=== PATIENT | male | born 1985 | race Caucasian/White ===

== ENCOUNTER 2016-11-07 14:34 | Emergency (ER) | payer OTHER ==
[~2016-11-07] VITALS: Ht 167.6 cm; Wt 127.3 kg
[~2016-11-07 14:34] MED LIST: METH5TAB3 PO; MULT-1039 PO; OMEP-113 PO; OXYC20OR15 PO; SOM350 PO; VIS25 PO; VITE PO; ZAN150T PO
[2016-11-07] MEDS ORDERED: Ondansetron 2 mg/mL 2 mL Inj IVPUSH PRN (15:00)
[2016-11-07] MEDS ORDERED: 0.9% Sodium Chloride 1,000 ML IV ONE (15:00)
[2016-11-07] MEDS ORDERED: HYDROmorphone 1 mg/mL Inj IVPUSH PRN (15:00)
[2016-11-07 15:10] VITALS: BP 133/87; PULSE 104; RESP 15; O2SAT 96
[2016-11-07] MEDS ORDERED: OMEP40CA36 PO (15:17)
[2016-11-07] MEDS ORDERED: HYDR2TAB28 PO (15:17)
[2016-11-07] MEDS ORDERED: PROM25TA14 PO (15:17)
[2016-11-07] MEDS ORDERED: DIAZ2TAB PO (15:17)
[2016-11-07] MEDS ORDERED: BUPR150T8 PO (15:17)
--- NOTE | 2016-11-07 15:36 | ED.REPORT ---
HPI-Abd Pain M Under 40 Date of Service Nov 07, 2016 ED Provider: Fabian Knight MD This is a 31 year old male with a history of congenital arthrogryposis and peripheral neuropathy presenting to the emergency department complaining of lower abdominal pain that began 4 hours ago. Described as cramping and burning. Associated symptoms include diarrhea, reports 4 episodes since onset. Denies vomiting, nausea, fever, chills, cough, shortness of breath, or chest pain. Pt recently completed Augmentin for ulcerations to bilateral lower extremities. States he does not want lab draw as he is very difficult to get blood from. No blood in stool. Nursing Notes Chief Complaint: Male Abdominal Pain Nursing Notes Reviewed: Yes Allergies: Coded Allergies: acetaminophen (Verified Allergy, Intermediate, hives/itching, 04/11/16) hydrocodone (Verified Allergy, Intermediate, hives/itching, 05/02/16) ibuprofen (Verified Adverse Reaction, Intermediate, nausea/vomiting, ) ketorolac (Verified Adverse Reaction, Intermediate, hurts to pee, 05/02/16) tramadol (Verified Adverse Reaction, Intermediate, hurts to pee, 05/02/16) Scheduled Bupropion ER (Wellbutrin SR) 150 Mg Tablet.er 150 MG PO BID Metronidazole (Metronidazole) 500 Mg Tablet 500 MG PO TID Omeprazole (Omeprazole) 40 Mg Capsule.dr 40 MG PO BID Scheduled PRN Diazepam (Valium) 2 Mg Tablet 2 MG PO BID PRN PRN For Anxiety Hydromorphone (Hydromorphone) 2 Mg Tablet 2 MG PO BID PRN PRN Pain Promethazine (Promethazine) 25 Mg Tablet 25 MG PO BID PRN PRN For Nausea General Time Seen by MD: 15:00 Chief Complaint Abdominal pain Hx Obtained From: Patient Arrived By: Walk-in Sudden in Onset?: Yes Onset Occurred: 13 - 16 hours ago Symptom Duration: Since onset Location: : Diffuse Severity: Current: Moderate Pertinent Negative: Pt denies other symptoms Recent Healthcare: No recent doctor visit, No recent hospitalization Similar Sx Previous: No Past Medical History Past Medical History arthrogryposis peripheral neuropathy Past Surgical History Achilles tendon release as a child due to congenital abnormality of the lower extremities secondary to arthrogryposis. Smoking History Current Every Day Smoker, Former Smoker Social History Alcohol Use: "Social" Drug Use: Denies drug use Ambulatory Status Wheelchair Review of Systems Constitutional: Denies: Chills, Fever Respiratory: Denies: Non-productive cough, Shortness of breath Cardiovascular: Denies: Chest pain GI: Reports: Abdominal pain, Diarrhea, Denies: Constipation, Nausea, Vomiting Male: Denies Dysuria Complete sys rev & neg: except as marked. Neurologic: Denies: Headache Physical Exam Initial Vital Signs Vital Signs (First) Date Time Temp Pulse Resp B/P Pulse Ox O2 Delivery O2 Flow Rate FiO2 11/07/16 15:10 104 15 133/87 96 Room Air Initial VS: Reviewed Head / Eyes: Atraumatic, Normocephalic, PERRL ENT: Mucous membranes moist, Conjunctiva normal, No scleral icterus Neck: Supple, Non-tender, Full range of motion Skin: Warm, Dry, No cyanosis Neurologic: Alert, Oriented, Nonfocal Psychiatric: Mood/affect normal, Behavior normal, Normal thought content General/Constitutional: Awake, Alert Respiratory / Chest: Breath sounds NL, Breath sounds = bilat, No respiratory distress, No rales, No rhonchi, No wheezing, No stridor Cardiovascular: Heart rate NL, Regular rhythm, Heart sounds NL, Peripheral circulation NL Abdomen: Non-tender, McBurney's non-tender, No guarding, No rebound, BS normoactive Back: Inspection NL, Non-tender, No CVA tenderness Interpretation & Diagnostics Lab Results Interpretation Re-Eval/Medical Decision Med Decision/Clinical Course Observed in Ed for >4 hours- took this long to get a stool sample. He was given 1 IM dose of dilaudid and phenergan and one dose of 2mg dilaudid- usual home pain med. Discussed empiric treatment of suspect C diff- pt would like to do this, will call in 2 days to check stool results, start flagyl in the meantime. also note- requested temp be done when I first saw the pt and asked to be notified if there was a fever. note no temp reported post DC Re-Evaluation/Progress : Time of Eval: 19:26 Patient Status: Condition improved Re-Evaluation/Progress Note: Discussed lab results and plan for d/c, all questions addressed. Counseled Regarding: Diagnosis, Lab results, Need for follow-up, When/why to return to ED Patient Discharge & Departure Primary Impression: Diarrhea Disposition: Home Discharge Condition All VS Reviewed: Yes Condition: Stable Patient Instructions: Acute Diarrhea (ED), Clostridium Difficile Infection (ED) Additional Instructions: Emergency department evaluation today included interview, examination, lab testing, and review of past medical history. A stool test for C. difficle, a specific type of diarrhea associated with recent antibiotics was sent. While it is running, we have started treatment. Take Flagyl as prescribed. Avoid alcohol consumption while taking this medication. Consume frequent clear fluids. Other diet as tolerated. Follow-up with your primary care provider. Call tomorrow to schedule an appointment. Return to the emergency department if you develop any new or worsening symptoms. Referrals: Matt Gonzalez DO (PCP) Freda[place] Attestation Portions of this note were transcribed by Mayra Trinh. I, Dr. Knight personally performed the history, physical exam and medical decision-making; I reviewed and confirmed the accuracy of the information in the transcribed note. Signed by Xena Arenas, 11/07/2016 at 18:00. copies to: Matt Gonzalez Donald L MD Nov 07, 2016 15:36 MAYRA TRINH Nov 07, 2016 15:44
[2016-11-07 16:30] VITALS: BP 123/82; PULSE 101; RESP 21; O2SAT 95
[2016-11-07] MEDS ORDERED: Promethazine 25 mg/mL Inj IM ONE (16:55)
[2016-11-07] MEDS ORDERED: HYDROmorphone 1 mg/mL Inj IM ONE (16:55)
[2016-11-07] MEDS ORDERED: METR500T19 PO (19:48)
== END 2016-11-07 20:31 | disposition home or self-care (01) ==
LOC: SED 14:34
DX: R19.7 Diarrhea, unspecified (principal); R10.84 Generalized abdominal pain; Q74.3 Arthrogryposis multiplex congenita; G62.9 Polyneuropathy, unspecified; F17.200 Nicotine dependence, unspecified, uncomplicated; Z88.6 Allergy status to analgesic agent; Z88.5 Allergy status to narcotic agent
CPT/HCPCS: 36415; 87493; 96372; 99284; J1170; J2550

== ENCOUNTER 2016-11-14 16:58 | Emergency (ER) | payer OTHER ==
[~2016-11-14] VITALS: Ht 170.2 cm; Wt 130.0 kg
[~2016-11-14 16:58] MED LIST changes: +BUPR150T8 PO; +DIAZ2TAB PO; +HYDR2TAB28 PO; -METH5TAB3 PO; +METR500T19 PO; -MULT-1039 PO; -OMEP-113 PO; +OMEP40CA36 PO; -OXYC20OR15 PO; +PROM25TA14 PO; -SOM350 PO; -VIS25 PO; -VITE PO; -ZAN150T PO
[2016-11-14 17:57] VITALS: BP 134/94; PULSE 103; RESP 20; O2SAT 96
--- NOTE | 2016-11-14 20:02 | ED.REPORT ---
HPI-Extremity Problem Lower Date of Service Nov 14, 2016 ED Provider: Dr. Wolf Scott D.O. A 31 year old male with a history of arthrogryposis and peripheral neuropathy presents to the ED with left leg pain after scraping it just prior to arrival. The patient is being followed at wound care for bilateral leg wounds. Nursing Notes Stated Complaint: BOTH LEG PAIN/ SCRAPPED Chief Complaint: Extremity Trauma Nursing Notes Reviewed: Yes Allergies: Coded Allergies: acetaminophen (Verified Allergy, Intermediate, hives/itching, 04/11/16) hydrocodone (Verified Allergy, Intermediate, hives/itching, 05/02/16) ibuprofen (Verified Adverse Reaction, Intermediate, nausea/vomiting, ) ketorolac (Verified Adverse Reaction, Intermediate, hurts to pee, 05/02/16) tramadol (Verified Adverse Reaction, Intermediate, hurts to pee, 05/02/16) Scheduled Bupropion ER (Wellbutrin SR) 150 Mg Tablet.er 150 MG PO BID Metronidazole (Metronidazole) 500 Mg Tablet 500 MG PO TID Omeprazole (Omeprazole) 40 Mg Capsule.dr 40 MG PO BID Scheduled PRN Diazepam (Valium) 2 Mg Tablet 2 MG PO BID PRN PRN For Anxiety Hydromorphone (Hydromorphone) 2 Mg Tablet 2 MG PO BID PRN PRN Pain Promethazine (Promethazine) 25 Mg Tablet 25 MG PO BID PRN PRN For Nausea General Time Seen by MD: 20:02 Chief Complaint Other (Left Leg Pain) Hx Obtained From: Patient Arrived By: Walk-in Onset Occurred: Just prior to arrival Symptom Duration: Since onset Caused by: Accidental Location: : Leg left Quality: Painful Severity: Current: Moderate Severity: Maximum: Moderate Associated with: Denies: Fever Pertinent Negative: Relieved by nothing Immunizations: Tetanus up to date Recent Healthcare: Recent doctor visit (Wound Care) Similar Sx Previous: Yes Past Medical History Past Medical History arthrogryposis peripheral neuropathy Past Surgical History Achilles tendon release as a child due to congenital abnormality of the lower extremities secondary to arthrogryposis. Smoking History Current Every Day Smoker, Former Smoker Social History Alcohol Use: "Social" Drug Use: Denies drug use Ambulatory Status Wheelchair Review of Systems Review of Systems Note: + Bilateral leg wounds Constitutional: Denies: Fever Musculoskeletal: Reports: Extremity pain (Left leg) Complete sys rev & neg: except as marked. Respiratory: Denies: Non-productive cough, Shortness of breath GI: Denies: Vomiting Physical Exam Initial Vital Signs Vital Signs (First) Date Time Temp Pulse Resp B/P Pulse Ox O2 Delivery O2 Flow Rate FiO2 11/14/16 17:57 37.2 103 20 134/94 96 Room Air Initial VS: Reviewed Head / Eyes: Atraumatic, Normocephalic ENT: Conjunctiva normal, No scleral icterus Neck: Supple, Full range of motion Skin: Warm, Dry, No cyanosis Neurologic: Alert, Oriented, Nonfocal Psychiatric: Mood/affect normal, Behavior normal, Normal thought content Lower Extremity / Pelvis / MS: Atraumatic (No signs of external trauma), No deformity Left leg brace in place General/Constitutional: Awake, Alert Re-Eval/Medical Decision Source of Hx: Old records Re-Evaluation/Progress : Time of Eval: 20:30 Patient Status: Condition improved Re-Evaluation/Progress Note: Discussed with patient diagnosis and plan for discharge. Follow-up and return to the ER instructions given. Patient agrees with plan for care and all questions were addressed. Counseled Regarding: Diagnosis, Need for follow-up, When/why to return to ED Discharge & Departure Impression: Primary Impression: Peripheral neuropathy Peripheral neuropathy type: polyneuropathy, other Qualified Code: G62.89 - Other specified polyneuropathies Additional Impression: Neuropathic pain Disposition: Home Discharge Condition All VS Reviewed: Yes Condition: Improved Patient Instructions: Peripheral Neuropathy (ED) Additional Instructions: Thank you for entrusting us with your care. Rest tonight. Do not drive or drink alcohol tonight as you have been given sedating medication. Call your primary care provider tomorrow for a follow-up appointment. Return to the ER with any new or worsening symptoms. Referrals: Matt Gonzalez DO (PCP) Xena Attestation Portions of this note were transcribed by Armida Haro. I, Dr. Scott, personally performed the history, physical exam, and medical decision-making; I reviewed and confirmed the accuracy of the information in the transcribed note. Signed by: Xena Cherry, 11/14/2016, 23:55 copies to: Matt Gonzalez Todd P DO Nov 14, 2016 20:02 ARMIDA HARO Nov 14, 2016 20:17
[2016-11-14] MEDS ORDERED: HYDROmorphone 1 mg/mL Inj IM ONE ×2 (20:05→22:15)
[2016-11-14] MEDS ORDERED: Promethazine 25 mg/mL Inj IM ONE (20:45)
[2016-11-14 21:10] VITALS: BP 139/97; PULSE 105; O2SAT 95
[2016-11-14 22:48] VITALS: BP 126/86; PULSE 68; O2SAT 96
== END 2016-11-14 22:49 | disposition home or self-care (01) ==
LOC: SED 16:58
DX: G62.89 Other specified polyneuropathies (principal); F17.200 Nicotine dependence, unspecified, uncomplicated; Z88.5 Allergy status to narcotic agent; Z88.6 Allergy status to analgesic agent
CPT/HCPCS: 96372; 99284; J1170; J2550

== ENCOUNTER 2016-12-12 16:29 | Emergency (ER) | payer OTHER ==
[~2016-12-12] VITALS: Ht 167.6 cm; Wt 131.8 kg
[2016-12-12 16:43] VITALS: BP 142/94; PULSE 105; RESP 20; O2SAT 98
--- NOTE | 2016-12-12 17:45 | ED.REPORT ---
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 Pain is constant. Patient denies fever, chills, nausea, vomiting, and any other current symptoms. He has home health care that assists him with ADL's and wound care. Currently he takes 2mg Dilaudid 3-4 times daily as needed for pain control. Nursing Notes Stated Complaint: BOTH LEG PAIN Chief Complaint: Extremity Trauma Nursing Notes Reviewed: Yes Allergies: Coded Allergies: acetaminophen (Verified Allergy, Intermediate, hives/itching, 04/11/16) hydrocodone (Verified Allergy, Intermediate, hives/itching, 05/02/16) ondansetron (Verified Allergy, Unknown, SEVERE VOMITING, 12/12/16) ibuprofen (Verified Adverse Reaction, Intermediate, nausea/vomiting, ) ketorolac (Verified Adverse Reaction, Intermediate, hurts to pee, 05/02/16) tramadol (Verified Adverse Reaction, Intermediate, hurts to pee, 05/02/16) Scheduled Bupropion ER (Wellbutrin SR) 150 Mg Tablet.er 150 MG PO BID Metronidazole (Metronidazole) 500 Mg Tablet 500 MG PO TID Omeprazole (Omeprazole) 40 Mg Capsule.dr 40 MG PO BID Scheduled PRN Diazepam (Valium) 2 Mg Tablet 2 MG PO BID PRN PRN For Anxiety Hydromorphone (Hydromorphone) 2 Mg Tablet 2 MG PO BID PRN PRN Pain Promethazine (Promethazine) 25 Mg Tablet 25 MG PO BID PRN PRN For Nausea General Time Seen by MD: 17:43 Chief Complaint Other (Bilateral Lower Extremity Pain) Hx Obtained From: Patient Arrived By: Walk-in Sudden in Onset?: No Onset Occurred: 5 - 8 hours ago Symptom Duration: Constant Location: : Leg left: Leg right Quality: Painful Severity: Current: Moderate Severity: Maximum: Pain level 10 out of 10 Similar Sx Previous: Yes Past Medical History Past Medical History arthrogryposis peripheral neuropathy Past Surgical History Achilles tendon release as a child due to congenital abnormality of the lower extremities secondary to arthrogryposis. Smoking History Current Every Day Smoker, Former Smoker Social History Alcohol Use: "Social" Drug Use: Denies drug use Ambulatory Status Wheelchair Review of Systems Full Review of Systems Constitutional: Denies: Chills, Fever Respiratory: Denies: Non-productive cough, Shortness of breath GI: Denies: Abdominal pain, Diarrhea, Nausea, Vomiting Musculoskeletal: Reports: Extremity pain (Lower, bilateral), Denies: Back pain, Lumbar pain, Neck pain Complete sys rev & neg: except as marked. Physical Exam Vital Signs Vital Signs Date Time Temp Pulse Resp B/P Pulse Ox O2 Delivery O2 Flow Rate FiO2 12/12/16 19:00 110 20 124/78 96 Room Air 12/12/16 16:43 37.0 105 20 142/94 98 Room Air Initial VS: Reviewed Head / Eyes: Atraumatic, Normocephalic Neck: Supple, Non-tender, Full range of motion Abdomen / GI: Soft, Non-tender, No guarding, No rebound, No distention Skin: Warm, Dry, No cyanosis Neurologic: Alert, Oriented, Nonfocal General/Constitutional: Awake, Alert, Well developed, Well nourished Respiratory / Chest: Breath sounds NL, No respiratory distress, No rales, No rhonchi, No wheezing Cardiovascular: Heart rate NL, Regular rhythm, Heart sounds NL, Cap refill not delayed, Peripheral circulation NL Upper Extremities Upper Extremity / MS: Neurologic intact, Vascular intact Dysmorphic features bilateral upper extremities. Lower Extremity / Pelvis / MS: No swelling, Vascular intact Braces about bilateral lower extremities. Karol boots present. 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 Patient reports that he is on chronic narcotic pain medications and reports multiple previous visits here in the past to receive intramuscular injections of Dilaudid in the setting of exacerbations of his underlying chronic pain. He requests the same today. In reviewing the patient's chart acuity is been seen here multiple times in the past and has received intramuscular Dilaudid injections. I explained to the patient that this is not within the regular scope of my treatment. Of note I have seen this patient once in the past and had a similar conversation with him. The patient is an multiple visits here in the past for which he has received narcotic pain medications I agreed to administer the below medications which is significantly less than he usually receives: 2mg IM Dilaudid 25mg IM Phenergan After receiving these medications the patient stated that he thought that the "Dilaudid had oozed back out again" and requested more pain medications. We explained to the patient that no further administrations of opiate pain medications would be given here in the emergency department today. I explained it in the future should the patient presented to the emergency department requesting opiate pain medications for acute exacerbation of his chronic pain that I would not personally administer these drugs. He was monitored here in the emergency department demonstrated no respiratory depression. There is no evidence of significant infection or complication related to his debridement. He is at his baseline status. He was discharged in stable condition. Follow precautions were reviewed in detail and he verbalizes understanding and agreement with the plan. Time of Eval: 18:22 Re-Evaluation/Progress Note: Discussed plan to discharge. Patient is amenable to the plan. Return precautions given. All other questions addressed. Counseled Regarding: Diagnosis, Need for follow-up, When/why to return to ED Discharge & Departure Primary Impression: Chronic pain of lower extremity Laterality: bilateral Qualified Code: M79.604 - Pain in right leg Additional Impression: Opiate dependence Substance use status: with unspecified opioid-induced disorder Qualified Code : F11.29 - Opioid dependence with unspecified opioid-induced disorder Disposition: Home Discharge Condition All VS Reviewed: Yes Condition: Stable Additional Instructions: Thank you for seeking care at emergency room. It is difficult for us to make definitive diagnoses in the ED but we believe that you are experiencing an exacerbation of your chronic pain. Our primary goal today in the ED was to evaluate you for any life-threatening conditions. Your evaluation was reassuring. You were treated with intramuscular pain medications. You should follow-up with your primary doctor in the next week. We generally do not treat chronic pain here in the emergency department in the future you should discuss how to manage your pain with your regular doctor. I will not prescribe intramuscular hydromorphone in the future for exacerbations of your chronic pain. You should return to the ED immediately if you develop worse pain, fevers, vomiting, cough, shortness of breath, chest pain, lightheadedness, weakness or any other concerning signs or symptoms. Thank you for letting us partake in your care today. Referrals: Matt Gonzalez DO (PCP) Xena Attestation Portions of this note were transcribed by Alfred York. I, Dr. Michaels, personally performed the history, physical exam and medical decision-making; I reviewed and confirmed the accuracy of the information in the transcribed note. Signed by: Xena Lamas, 12/12/2016 and 18:27 copies to: Matt Gonzalez Beck O MD Dec 12, 2016 17:45 ALFRED YORK Dec 12, 2016 17:48
[2016-12-12] MEDS ORDERED: Promethazine 25 mg/mL Inj IM ONE (18:25)
[2016-12-12] MEDS ORDERED: HYDROmorphone 1 mg/mL Inj IM ONE (18:25)
[2016-12-12 19:00] VITALS: BP 124/78; PULSE 110; RESP 20; O2SAT 96
== END 2016-12-12 19:00 | disposition home or self-care (01) ==
LOC: SED 16:29
DX: M79.604 Pain in right leg (principal); M79.605 Pain in left leg; G89.29 Other chronic pain; F11.29 Opioid dependence with unspecified opioid-induced disorder; F17.200 Nicotine dependence, unspecified, uncomplicated; Z98.890 Other specified postprocedural states; Z87.76 Personal history of (corrected) congenital malformations of integument, limbs and musculoskeletal system; Z88.5 Allergy status to narcotic agent; Z88.8 Allergy status to other drugs, medicaments and biological substances
CPT/HCPCS: 96372; 99284; J1170; J2550